=== PATIENT | female | born 1960 | race Caucasian/White ===

== ENCOUNTER 2018-04-18 08:33 | Day surgery (SDC) | payer BC ==
[~2018-04-18 08:33] MED LIST: Buffered Lidocaine 0.9% SYRIN* 5 ML/SYR SYRINGE INTRADERM ONE
[2018-04-18] MEDS ORDERED: fentaNYL* 50 MCG/ML 2 ML VIAL (100 MCG VIAL) ONE (08:34)
[2018-04-18] MEDS ORDERED: Midazolam* 1 MG/ML 2 ML VIAL (2 MG) ONE (08:34)
[2018-04-18] MEDS ORDERED: Metoclopramide IV* 5 MG/ML 2 ML VIAL ONE (08:54)
[2018-04-18] MEDS ORDERED: Ketorolac INJ* 30 MG/ML 1 ML VIAL ONE (08:54)
[2018-04-18] MEDS ORDERED: Bupivacaine 0.5% SDV PF* 30ML VIAL ONE (09:38)
[2018-04-18 10:43] VITALS: BP 125/75
--- NOTE | 2018-04-18 12:13 | OP ---
OPERATIVE REPORT: DATE OF OPERATION: 04/18/18 - JAYME DATE OF : 56 SURGEON: Alejandro Rivas MD NUMERICAL CONTROL MACHINE OPERATOR: AYDIN Mcclendon ANESTHESIOLOGIST: Mamadou Mcdonnell MD ANESTHESIA: Local MAC. PRE-OP DIAGNOSES: Left ring finger mucous cyst with ulceration and nail plate deformity. POST-OP DIAGNOSES: Left ring finger mucous cyst with ulceration and nail plate deformity. OPERATIVE PROCEDURE: Excision of left ring finger mucous cyst. INDICATIONS: Maria Eugenia has had waxing and waning mucous cyst for many months; it ulcerates the skin on the dorsal ulnar aspect of the eponychium. We had talked about excising the cyst. We talked about excising the area of ulceration and doing a rotational flap versus simply excising the cyst and letting the skin overlying it to heal up. We have decided to proceed with the latter. She understands there is a risk that we may have to come back and do a rotational flap. ESTIMATED BLOOD LOSS: 2 mL. COMPLICATIONS: None. FINDINGS: See above and below. DESCRIPTION OF PROCEDURE: Maria Eugenia was seen in the preoperative holding area. The correct site, side, and procedure were identified. We came back to the operating room. She got some anesthesia. I performed a digital block with 0.5 % Marcaine. We then prepped and draped the hand in the usual fashion. A time- out was performed. Finger was exsanguinated with the Tourni-Cot and this was left on proximally throughout the procedure. I then made a T-shaped incision over the distal aspect of the dorsal ulnar DIP joint of the ring finger. Full-thickness flaps were raised. The cystic material was from the underlying dermis. This was excised in its entirety and handed off as a specimen. It did look like it was emanating from the ulnar aspect of the DIP joint between the extensor tendon and the collateral ligament. I went ahead and nipped off the bone spurs there with the rongeur. I cleaned up all the soft tissue. I cauterized the area with the Bovie. At this point, everything was looking good, nice and clean, and the cyst excised. So, we irrigated out the wound. The skin was closed with 4-0 nylon suture. The finger dressing was applied. The Tourni- Cot was released and finger picked up immediately. I did have to remove the Tourni-Cot and then put it back on once during the procedure, she started to bleed through the tourniquet, but at the end of procedure this was removed definitively. She was taken to the recovery room in stable condition. [id number]/[facility] #: [id number] [facility]
== END 2018-04-18 10:45 | disposition home or self-care (01) ==
LOC: OREAST 08:33
PROVIDERS: ATTEND Orthopaedic Surgery Hand Surgery
DX: L72.3 Sebaceous cyst (principal); Z87.891 Personal history of nicotine dependence; M19.90 Unspecified osteoarthritis, unspecified site; M54.2 Cervicalgia; J30.89 Other allergic rhinitis
CPT/HCPCS: 88304; J1885; J2250; J2765; J3010